=== PATIENT | female | born 1950 | race Caucasian/White ===

== ENCOUNTER 2017-05-07 20:01 | Emergency (ER) | payer MEDICARE ==
[~2017-05-07] VITALS: Ht 165.1 cm; Wt 95.6 kg
[2017-05-07 20:04] VITALS: BP 143/94
[2017-05-07 20:44] LABS: RAPID INFLUENZA A POSITIVE (Negative); RAPID INFLUENZA B Negative (Negative)
[2017-05-07] MEDS ORDERED: BACITRACIN ZINC OINT 500U/GM, 0.9 GM ONE (21:23)
== END 2017-05-07 21:55 | disposition home or self-care (01) ==
LOC: ED 20:33
DX: J09.X2 Influenza due to identified novel influenza A virus with other respiratory manifestations (principal); E11.9 Type 2 diabetes mellitus without complications
CPT/HCPCS: 71046; 82962; 87400; 99285